=== PATIENT | female | born 1960 | race Caucasian/White ===

== ENCOUNTER 2019-04-21 08:00 | Inpatient (IN) | payer MEDICAID, OTHER ==
[2019-04-21] VITALS (24 sets, daily range): BP systolic 116–141; BP diastolic 66–82
[~2019-04-21] VITALS: Ht 172.7 cm; Wt 80.5 kg
[~2019-04-21 08:00] MED LIST: ASPI-231 PO; DRON2.5C PO; LEVO50TA7 PO; OMEP20CA74 OR; ONDA-144 PO; PERCOT PO; QUE100T PO; TOPI100T29 PO; TRAM100T37 PO
[2019-04-21] MEDS ORDERED: NALOXONE HCL 0.4 MG/ML VIAL ONE (08:06)
[2019-04-21] MEDS ORDERED: MIDAZOLAM DRIP 50 mg/50mL 50 ML IV ONE (08:14)
[2019-04-21] MEDS ORDERED: SODIUM CHLORIDE 0.9% 1,000 ML IVB ONE (08:16)
[2019-04-21] MEDS ORDERED: MIDAZOLAM HCL 5 MG/ML-1ML VIAL ONE (08:21)
[2019-04-21] MEDS: MIDAZOLAM DRIP 50 mg/50mL 50 ML IV SCH ×2 (08:24→09:05)
[2019-04-21] MEDS ORDERED: NALOXONE HCL 0.4 MG/ML VIAL IV ONE (08:30)
[2019-04-21] MEDS ORDERED: SODIUM CHLORIDE 0.9% 500 ML IVB ONE (08:33)
[2019-04-21] MEDS ORDERED: SODIUM CHLORIDE 0.9% 1,000 ML IV ONE (08:33)
[2019-04-21] MEDS ORDERED: MIDAZOLAM HCL 5 MG/ML-1ML VIAL IV ONE (09:00)
[2019-04-21 09:21] LABS: Urine Bacteria NONE SEEN /hpf (None Seen); Urine Blood Negative /uL (Negative); Urine Hyaline Cast MOD /lpf (0 - 2); Urine Mucus FEW (None Seen); Urine WBC 2 /hpf (0 - 5)
--- NOTE | 2019-04-21 09:29 | NUR ---
Respiratory note: FIO2 TITRATED TO 50%. MILLICENT CANCHOLA AWARE. WILL CONTINUE TO MONITOR.
[2019-04-21 09:37] LABS: Basophils # (auto) 0 uL; Basophils % (auto) 0.3 % (0.0-2.0); Eosinophils # (auto) 0 uL; Eosinophils % (auto) 0.2 % (0.0-7.0); Hematocrit 42.7 % (36.0-46.0); Hemoglobin 14.4 g/dL (12.2-16.2); Lymphocytes # (auto) 0.7 uL; Lymphocytes % (auto) 4.4 % (10.0-50.0); Mean Corpuscular Hemoglobin 31.6 pg (28.0-32.0); Mean Corpuscular Hgb Conc. 33.7 g/dL (32.0-36.0); Mean Corpuscular Volume 93.7 fL (80.0-100.0); Monocytes # (auto) 0.6 uL; Monocytes % (auto) 4.1 % (0.0-12.0); Neutrophils # (auto) 13.6 uL; Platelet Count (auto) 166 10^3/uL (140-450); Red Blood Cells 4.56 10^6/uL (4.0-5.20); Red Cell Distribution Width 13.3 % (11.8-14.3)
[2019-04-21 09:40] LABS: Alcohol, Urine < 3.0 mg/dL (0-5); Amphetamine Screen, Urine NEGATIVE (NEGATIVE); Barbiturate Scree,Urine NEGATIVE (NEGATIVE); Benzodiazephine Screen, Urine POSITIVE (NEGATIVE); Cannabinoid Screen, Urine POSITIVE (NEGATIVE); Cocaine Screen, Urine NEGATIVE (NEGATIVE); Opiate Scree,Urine NEGATIVE (NEGATIVE); Phencyclidine Screen, Urine NEGATIVE (NEGATIVE)
[2019-04-21 09:57] LABS: Alanine Aminotransferase 14 U/L (13-56); Anion Gap 13 (5-15); Aspartate Aminotransferase 16 U/L (15-37); BUN/Creatinine Ratio 15.4; Blood Alcohol < 3.0 mg/dL (0-5); Blood Urea Nitrogen 14 mg/dL (7-18); Calcium 9.6 mg/dL (8.5-10.1); Carbon Dioxide 23 mmol/L (21-32); Chloride 105 mmol/L (98-107); GFR African American 82 mL/min; GFR Non-African American 68 mL/min; Glucose 174 mg/dL (74-106); Potassium 3.2 mmol/L (3.5-5.1); Sodium 141 mmol/L (136-145)
[2019-04-21 09:59] LABS: Salicylate 2.7 mg/dL (2.8-20.0)
[2019-04-21 10:00] LABS: Alkaline Phosphatase 54 U/L (45-117); Bilirubin, Total 0.9 mg/dL (0.2-1.0); Total Protein 7.6 g/dL (6.4-8.2)
[2019-04-21 10:01] LABS: Acetaminophen < 2.0 ug/mL (10-30)
--- NOTE | 2019-04-21 10:32 | NUR ---
RT Transport Note: Patient transported to CT with RN YNES CRENSHAW. Patient transported to and from procedure on ventilator with previous ordered settings. Patient on director of cardiac rehabilitation with alarms set and audible, ambu-bag/mask connected to 02 tank. Patient returned to room with no adverse reaction noted. Transport completed without incident.
[2019-04-21] MEDS ORDERED: MORPHINE SULF INJ 2 MG/ML SYRINGE 1ML IV PRN (13:15)
[2019-04-21] MEDS ORDERED: LABETALOL HCL 5 MG/ML ML 20ML VIAL IV PRN (13:15)
[2019-04-21] MEDS: MAGNESIUM SULFATE 1GM/100ML 100 ML IV SCH ×2 (13:15→14:15)
[2019-04-21] MEDS ORDERED: NITROGLYCERIN 0.4 MG SL TAB SL PRN (13:15)
[2019-04-21] MEDS ORDERED: cefTRIAXone 1GM/50ML D5W 50 ML IV ONE (13:30)
[2019-04-21] MEDS: SODIUM CHLORIDE 0.9% 1,000 ML IV SCH (13:40)
--- NOTE | 2019-04-21 19:38 | NUR ---
REPORT RECEIVED FROM TOLU QUICK/MILLICENT
--- NOTE | 2019-04-21 20:00 | NUR ---
INITIAL CONTACT PATIENT RECEIVED ON [facility] IN SEMI-FOWLERS POSITION, INTUBATED AND SEDATED ON VERSED. VITAL SIGNS SHOW TACHYCARDIA. NO S/S OF DISTRESS. PATIENT DOES NOT APPEAR TO BE IN PAIN, NO FACIAL GRIMACE. PATIENT MOVES HEAD WHEN CARE IS RENDERED. NOTED DUNN CATHETER IN TACT AND DRAINING TO GRAVITY. 18 G IV RIGHT A/C, 22 G IV RIGHT HAND. PATENT, INTACT AND ASYMPTOMATIC. VENTILATOR PLUGGED INTO RED OUTLET PER VAP/PROTOCOL. AMBU BAG AT BEDSIDE. BED IN LOWEST LOCKED POSITION, SIDE RAILS UP X 2. PATIENT IS IN FULL VIEW OF NURSES STATION. SAFETY MAINTAINED, WILL CONTINUE TO MONITOR.
--- NOTE | 2019-04-21 20:00 | NUR ---
INITIAL CONTACT ASSUMED CARE OF PATIENT PATIENT RECEIVED ON [facility] [place] SEMI-FOWLERS POSITION, INTUBATED AND SEDATED ON VERSED. VITAL SIGNS SOW TACHYCARDIA @ 107. NO S/S OF DISTRESS NOTED. PATIENT DOES NOT APPEAR TO BE IN PAIN NO FACIAL GRIMACE NOTED. PATIENT DOES NOT SHANIA UPPER OR LOWER EXTREMITIES AT THIS TIME. NOTED DUNN CATHETER INTACT AND DRAINING TO GRAVITY. NO NG TUBE PRESENT. MOUTH CARE AND SUCTION PROVIDED. IV'S 22G RIGHT HAND, 18G RIGHT A/C, PATENT, INTACT AND ASYMPTOMATIC. NOTED COLOSTOMY TO LEFT ABD. VENTILATOR PLUGGED INTO RED OUTLET, PER VAP PROTOCOL. AMBU BAG AT BEDSIDE. BED IN LOWEST LOCKED POSITION, SIDE RAILS UP X 2, PATIENT IS IN FULL VIEW OF NURSE STATION. SAFETY MAINTAINED, WILL CONTINUE TO MONITOR.
--- NOTE | 2019-04-21 20:08 | NUR ---
RT Transport Note: Patient transported to ICU 108 with MILLICENT PEREZ. Patient on health information coder with alarms set and audible, ambu-bag/mask connected to 02 tank. Patient returned to room with no adverse reaction noted. Transport completed without incident.
--- NOTE | 2019-04-21 20:36 | NUR ---
MRSA SAMPLE SENT TO LAB
--- NOTE | 2019-04-21 22:24 | NUR ---
CALL RECEIVED FROM POISON CONTROL ANAMARIAN WAS GIVEN UPDATED INFORMATION ON PATIENT CURRENT CONDITION MEDICATIONS GIVEN, EKG ASSESSMENTS, CURRENT VITAL SIGNS ALL QUESTIONS AND CONCERNS WERE ANSWERED
[2019-04-22] VITALS (93 sets, daily range): BP systolic 113–160; BP diastolic 71–87
[2019-04-22] MEDS ORDERED: MAGNESIUM SULFATE 1GM/100ML 100 ML IV SCH ×2 (02:00)
[2019-04-22] MEDS: SODIUM CHLORIDE 0.9% 1,000 ML IV SCH ×3 (03:18→13:41)
[2019-04-22] MEDS: MIDAZOLAM DRIP 50 mg/50mL 50 ML IV SCH ×2 (03:18→13:40)
--- NOTE | 2019-04-22 03:50 | NUR ---
CALL RECEIVED FROM SISTER RENE LÓPEZ WAS UPDATED ON PATIENT'S CURRENT CONDITION ALL QUESTIONS AND CONCERNS WERE ADDRESSED AT THIS TIME
[2019-04-22 04:14] LABS: Basophils # (auto) 0 uL; Basophils % (auto) 0.2 % (0.0-2.0); Eosinophils # (auto) 0.1 uL; Eosinophils % (auto) 0.8 % (0.0-7.0); Hematocrit 39.6 % (36.0-46.0); Hemoglobin 13.5 g/dL (12.2-16.2); Lymphocytes # (auto) 1.4 uL; Lymphocytes % (auto) 9.5 % (10.0-50.0); Mean Corpuscular Hemoglobin 31.8 pg (28.0-32.0); Mean Corpuscular Volume 93.6 fL (80.0-100.0); Monocytes # (auto) 0.9 uL; Monocytes % (auto) 5.9 % (0.0-12.0); Neutrophils # (auto) 12.5 uL; Neutrophils % (auto) 83.6 % (37.0-80.0); Nucleated Red Blood Cells % 0.1 %; Platelet Count (auto) 175 10^3/uL (140-450); Red Blood Cells 4.23 10^6/uL (4.0-5.20); Red Cell Distribution Width 13.4 % (11.8-14.3)
[2019-04-22 04:31] LABS: Potassium 3.2 mmol/L (3.5-5.1)
[2019-04-22 04:38] LABS: Albumin 3.5 g/dL (3.4-5.0); Bilirubin, Total 0.7 mg/dL (0.2-1.0); Total Protein 7.4 g/dL (6.4-8.2)
--- NOTE | 2019-04-22 06:41 | NUR ---
ARON HOSPITALIST PAGED PATIENT HR INCREASED FORM HIGH 120'S TO 150'S...NEW ONSET PER ARON HE WILL REVIEW PATIENTS CHART AND PLACE ORDERS PATIENT WAS GIVEN A 300 ML BOLUS OF NS, NO CHANGE
[2019-04-22] MEDS ORDERED: POTASSIUM CHL 20MEQ/100ML 100 ML IV ONE (06:45)
--- NOTE | 2019-04-22 06:58 | NUR ---
Respiratory note: RECEIVED PATIENT ON V17 V200 VENT ORALLY INTUBATED WITH AN 8.0 ETT SECURED VIA PORFIRIO AT THE 22CM MARKING AST THE LIP, AND MECHANICALLY VENTILATED WITH THE CHARTED SETTINGS. SPO2 98%, LUNG SOUNDS COARSE T/O, NO SECRETIONS WHEN SUCTIONED. SKIN IS WARM/DRY TO THE TOUCH AND IS INTACT NEAR PORFIRIO SITE. THERE ARE NO GASTRIC TUBES, AND NO CENTRAL VENOUS ACCESS OR MIDLINES. AM CXR ASSESSED AND IT SHOWS ETT IN SATISFACTORY POSITION SITTING APPROX 5CM ABOVE THE SALOMÓN, NO INDICATION TO ADJUST TUBE. PATIENT IS SEDATED ON VERSED DRIP AND IS UNRESPONSIVE TO BOTH VERBAL/TACTILE STIMULI. SHE IS RESTING COMFORTABLY AND TOLERATING VENT WELL, NO CHANGES MADE. VENT PLUGGED INTO RED OUTLET AND ALL ALARMS ARE SET AND AUDIBLE. WILL CONTINUE TO ASSESS PATIENT WELL VENTILATOR FUNCTION.
[2019-04-22] MEDS ORDERED: DILTIAZEM 125mg/125ml BAG KIT 100 ML IV SCH (07:03)
[2019-04-22] MEDS ORDERED: DILTIAZEM HCL 25 MG/5 ML VIAL IV ONE (07:15)
--- NOTE | 2019-04-22 08:40 | NUR ---
EEG CURRENTLY BEING DONE AT THIS TIME.
--- NOTE | 2019-04-22 08:45 | NUR ---
KATHE FROM POISION CONTROL CALLED, UPDATED ON PATIENT AND CURRENT CONDITION.
--- NOTE | 2019-04-22 08:45 | NUR ---
EEG COMPLETED AT BEDSIDE. MILLICENT [place].
[2019-04-22] MEDS ORDERED: cefTRIAXone 1GM/50ML D5W 50 ML IV SCH (09:00)
[2019-04-22] MEDS ORDERED: ENOXAPARIN SOD 40 MG/0.4 ML SYRINGE SC SCH (10:00)
--- NOTE | 2019-04-22 10:10 | NUR ---
DR. MOSES HERE TO SEE PATIENT. SEE MD NOTES AND EMR FOR ANY NEW ORDERS.
[2019-04-22] MEDS ORDERED: METOPROLOL TARTRATE 1MG/1ML-5ML VIAL IV PRN (10:30)
[2019-04-22] MEDS ORDERED: hydrALAZINE HCL 20 MG/ML VL IV PRN (10:30)
--- NOTE | 2019-04-22 10:52 | NUR ---
1020 04/22/19 I called [facility] [phone] and spoke with senior sales compensation analyst Isaac who transferred me to Collector Jannette-I requested continued inpatient authorization. Per Jannette she can not give further inpatient authorization until she receives MD progress notes for today 04/22/19. I provided her with a verbal update on the status of the patient. I faxed Notice Regarding Post Stabilization to [phone].
--- NOTE | 2019-04-22 11:08 | NUR ---
Midline Placement: Patient's family educated on need for midline placement. All risks and benefits explained and all questions and concerns addresses prior to procedure. 18g/10cm midline inserted via right basilic vein using Ultrasound. Sterile technique utilized. Blood return obtained from lumen and flushed easily with NS using proper technique. Midline secured with saline lock; biodisc and occlusive dressing applied. Primary RN notified. Midline lot # [id number]
--- NOTE | 2019-04-22 11:20 | NUR ---
I faxed transfer order to [facility].
[2019-04-22 11:34] LABS: Calcium 8.5 mg/dL (8.5-10.1); Magnesium 2.3 mg/dL (1.6-2.6); Potassium 3.4 mmol/L (3.5-5.1)
[2019-04-22 11:36] LABS: BUN/Creatinine Ratio 12.5
[2019-04-22] MEDS: CLINDAMYCIN 300MG IV 50 ML IV SCH ×2 (13:41→22:00)
[2019-04-22] MEDS: POTASSIUM CHL 20MEQ/100ML 100 ML IV SCH ×2 (14:53→15:45)
--- NOTE | 2019-04-22 16:09 | NUR ---
4928 04/22/19 I spoke with [facility] Quality Director Jannette [phone]-she said they are working on the transfer for this patient, I provided her with contact information for Dr. Brown-I also faxed her today's MD progress notes per her request to [phone].
--- NOTE | 2019-04-22 20:40 | NUR ---
TRANSPORT TEAM ARRIVED TO TRANSFER PT. TO [facility] RM #[id number].
--- NOTE | 2019-04-22 20:55 | NUR ---
REPORT GIVEN TO MILLICENT CHICAS AT [facility].
--- NOTE | 2019-04-22 21:00 | NUR ---
REPORT GIVEN TO RATE SUPERVISOR.
--- NOTE | 2019-04-22 21:29 | NUR ---
PT. OFF UNIT TO TRANSFER TO [facility] RM#[id number]; NOTIFIED MILLICENT CHICAS THAT PT. ENROUTE- # .
[2019-04-23] MEDS ORDERED: PANTOPRAZOLE 40 MG/10 ML VIAL INJ IV SCH (10:00)
== END 2019-04-22 21:28 | disposition short-term general hospital (02) | DRG 917 ==
LOC: EDBD 08:00 → ER 08:00 → OVERFLOW 08:01 → ICU WEST 20:00
PROVIDERS: ADMIT Internal Medicine; ATTEND Internal Medicine
PROC: 5A1935Z Respiratory Ventilation, Less than 24 Consecutive Hours (ICD-10-PCS; principal; 2019-04-21)
PROC: 0BH17EZ Insertion of Endotracheal Airway into Trachea, Via Natural or Artificial Opening (ICD-10-PCS; 2019-04-21)
DX: T42.4X2A Poisoning by benzodiazepines, intentional self-harm, initial encounter (principal); G92 Toxic encephalopathy; J96.00 Acute respiratory failure, unspecified whether with hypoxia or hypercapnia; J69.0 Pneumonitis due to inhalation of food and vomit; A41.9 Sepsis, unspecified organism; E87.2 Acidosis; J44.0 Chronic obstructive pulmonary disease with (acute) lower respiratory infection; T68.XXXA Hypothermia, initial encounter; E87.6 Hypokalemia; E03.9 Hypothyroidism, unspecified; T40.7X2A Poisoning by cannabis (derivatives), intentional self-harm, initial encounter; F17.200 Nicotine dependence, unspecified, uncomplicated; F31.9 Bipolar disorder, unspecified; G43.909 Migraine, unspecified, not intractable, without status migrainosus; K21.9 Gastro-esophageal reflux disease without esophagitis; F41.9 Anxiety disorder, unspecified; R73.9 Hyperglycemia, unspecified; F12.10 Cannabis abuse, uncomplicated; I48.0 Paroxysmal atrial fibrillation; Z80.3 Family history of malignant neoplasm of breast; Z83.3 Family history of diabetes mellitus; Z91.5 Personal history of self-harm; Z90.710 Acquired absence of both cervix and uterus; Z90.81 Acquired absence of spleen; Z93.3 Colostomy status; Y92.89 Other specified places as the place of occurrence of the external cause
CPT/HCPCS: 31500; 36415; 36600; 70450; 71045; 80048; 80053; 80307; 80320; 80329; 81001; 82550; 82805; 83605; 83735; 84443; 84484; 85025; 85652; 87070; 87081; 87205; 93005; 94002; 94003; 95819; 96361; 96365; 96367; 96375; 99291; G0378; J0696; J2250; J3480; J3490

== ENCOUNTER 2021-10-17 18:23 | Emergency (ER) | payer OTHER ==
[~2021-10-17] VITALS: Ht 170.2 cm; Wt 79.4 kg
[~2021-10-17 18:23] MED LIST changes: -ASPI-231 PO; +ASPI1TAB20 PO
[2021-10-17 19:49] LABS: Basophils # (auto) 0.1 10 ^3/uL (0-0.2); Basophils % (auto) 0.7 % (0.0-2.0); Eosinophils # (auto) 0.3 10 ^3/uL (0-0.8); Eosinophils % (auto) 2.7 % (0.0-7.0); Hematocrit 38.5 % (36.0-46.0); Lymphocytes # (auto) 3.1 10 ^3/uL (0.4-5.4); Mean Corpuscular Hgb Conc. 33.8 g/dL (32.0-36.0); Mean Corpuscular Volume 91.7 fL (80.0-100.0); Monocytes # (auto) 0.6 10 ^3/uL (0-1.3); Monocytes % (auto) 6.6 % (0.0-12.0); Neutrophils # (auto) 5.7 10 ^3/uL (1.6-8.6); Red Cell Distribution Width 13.6 % (11.8-14.3); White Blood Cell 9.8 10^3/uL (4.4-10.8)
[2021-10-17 19:57] LABS: Albumin 4.1 g/dL (3.4-5.0); Anion Gap 9 (5-15); Blood Urea Nitrogen 17 mg/dL (7-18); Calcium 8.8 mg/dL (8.5-10.1); Carbon Dioxide 25 mmol/L (21-32); Chloride 109 mmol/L (98-107); Glucose 99 mg/dL (74-106); Potassium 3.4 mmol/L (3.5-5.1); Sodium 143 mmol/L (136-145)
[2021-10-17 19:59] LABS: BUN/Creatinine Ratio 15.2; GFR African American 64 mL/min; GFR Non-African American 53 mL/min
[2021-10-17 20:04] LABS: Alanine Aminotransferase 20 U/L (13-56); Alkaline Phosphatase 49 U/L (45-117); Aspartate Aminotransferase 15 U/L (15-37); Bilirubin, Total 0.3 mg/dL (0.2-1.0); Total Protein 7.2 g/dL (6.4-8.2)
[2021-10-17 21:00] VITALS: BP 151/65
== END 2021-10-17 21:50 | disposition home or self-care (01) ==
LOC: EDSEX 18:23 → EDBD 18:23 → ER 18:26
DX: R07.89 Other chest pain (principal); J44.9 Chronic obstructive pulmonary disease, unspecified; E11.9 Type 2 diabetes mellitus without complications; K21.9 Gastro-esophageal reflux disease without esophagitis; E78.5 Hyperlipidemia, unspecified; F17.210 Nicotine dependence, cigarettes, uncomplicated; Z90.710 Acquired absence of both cervix and uterus; Z90.89 Acquired absence of other organs; Z79.82 Long term (current) use of aspirin; Z79.899 Other long term (current) drug therapy
CPT/HCPCS: 36415; 71045; 80053; 83735; 84484; 85025; 93005